=== PATIENT | female | born 1975 | race Caucasian/White ===

== ENCOUNTER 2016-06-23 22:59 | Emergency (ER) | payer OTHER ==
--- NOTE | ~2016-06-23 | CR72 ---
[facility] A Service of [facility] RADIOLOGY TEXT RESULTS PATIENT: SHANELL CHAMPION LOCATION: SED : [birth year] UNIT #: [id number] AGE: [address]: Dorian Acosta MD SEX: F ORDER DR: [id number] [place] [id number] E MR#: [id number] Acc #: [id number] NAME: SHANELL CHAMPION : 1975 SEX: F STUDY DATE/TIME: 06/24/2016 1:15 UNIT: SED ROOM: STUDY DESCRIPTION: CR Chest Single View Portable Attending Physician: Dorian Acosta M.D. Ordering Physician: Dorian Acosta M.D. Primary Care Physician: Laith Mojica M.D. MEDICAL IMAGING REPORT This report is preliminary unless electronic signature is present. EXAM AP portable chest. DATE 06/24/2016 at 0115 HISTORY Abdominal pain, chest pain, nausea, and vomiting for 2 days. COMPARISON PA and lateral chest radiograph, 07/02/2015. FINDINGS A single AP portable view of the chest shows both lungs to be clear. The heart is normal in size. The mediastinal contour is normal. No significant bone abnormalities are seen. IMPRESSION Normal portable chest. Dictated by... Celena Lechuga M.D. THIS IS AN ELECTRONICALLY VERIFIED REPORT Celena Lechuga M.D. at 06/28/2016 8:37 AM LL/yanique TD: 06/24/2016 10:05 JOB #: [id number] [facility] A Service of [facility] RADIOLOGY TEXT RESULTS PATIENT: SHANELL CHAMPION LOCATION: SED : [birth year] UNIT #: [id number] AGE: [address]: Dorian Acosta MD SEX: F ORDER DR: MEDICAL IMAGING REPORT Page 1 of 1
--- NOTE | ~2016-06-23 | CT2 ---
[facility] A Service of [facility] & [facility] RADIOLOGY TEXT RESULTS PATIENT: SHANELL CHAMPION LOCATION: SED : [birth year] UNIT #: [id number] AGE: [address]: Dorian Acosta MD SEX: F ORDER DR: [id number] [place] [id number] E MR#: [id number] Acc #: [id number] NAME: SHANELL CHAMPION : 1975 SEX: F STUDY DATE/TIME: 06/24/2016 1:09 UNIT: SED ROOM: STUDY DESCRIPTION: CT Abd and Pelv W Cont Attending Physician: Dorian Acosta M.D. Ordering Physician: Dorian Acosta M.D. Primary Care Physician: Laith Mojica M.D. MEDICAL IMAGING REPORT This report is preliminary unless electronic signature is present. EXAM CT abdomen and pelvis with contrast Date: 06/24/2016 at 01:09 HISTORY 41-year-old female with complaints of chest pain and abdominal pain with nausea and vomiting for 2 days. Diabetes. Previous myocardial infarction. Colostomy with reversal. Bilateral hernia repair. COMPARISON CT abdomen and pelvis with contrast 03/14/2016, CTA AIF 03/18/2016. TECHNIQUE 5 mm axial images from lung bases to lesser trochanters after intravenous and enteric contrast administration. Sagittal and coronal reformatted images were obtained. This CT exam was performed with one or more of the following radiation dose reduction techniques: Automatic exposure control, adjustment of mA and/or kV according to patient size, and iterative reconstruction. FINDINGS Abdomen findings: Liver is enlarged 20.1 cm craniocaudally and is markedly diffusely steatotic but unchanged from prior exam. There is a small supraumbilical hernia containing nonobstructed noninflamed transverse colon. There is a small fat containing hernia in the left mid abdomen likely related to previous colostomy reversal site. There is segmental small bowel thickening within the left mid abdomen predominantly involving jejunum, and may represent changes of infectious or inflammatory enteritis. No evidence of high-grade bowel obstruction. The appendix is not visualized. No pericecal inflammation is seen. [facility] A Service of [facility] & [facility] RADIOLOGY TEXT RESULTS PATIENT: SHANELL CHAMPION [place] [facility] [birth year] UNIT #: [id number] AGE: [address]: Droian Acosta MD SEX: F ORDER DR: Gallbladder, pancreas, adrenals are normal. Multifocal bilateral renal cortical scarring. 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 Pelvis findings: Surgical changes of the sigmoid colon. Uterus, urinary bladder and rectum normal. No pelvic adenopathy or free fluid. No acute osseous abnormalities are identified. IMPRESSION 1. Thickened small bowel loops within the left mid abdomen predominately involving proximal jejunum. Correlate for infectious or inflammatory enteritis type symptoms. 2. Ventral abdominal hernias, 1 containing sidewall of the transverse colon, another containing a segment of small bowel, and a third low in the left lateral abdomen containing only fat. No convincing evidence of high-grade bowel obstruction. 3. Surgical changes of the sigmoid colon. 4. Multifocal bilateral renal cortical scarring. 5. 1 cm noncalcified nodule in the lingular segment of left upper lobe is stable since 01/04/2014 in keeping with a benign finding, not included in the body of the report. 6. Stable hepatomegaly with marked diffuse hepatic steatosis. 7. Splenic capsular cyst. Dictated by... Celena Lechuga M.D. THIS IS AN ELECTRONICALLY VERIFIED REPORT Celena Lechuga M.D. at 06/28/2016 8:37 AM ADIEL/zeferino TD: 06/24/2016 10:05 JOB #: [id number] MEDICAL IMAGING REPORT Page 1 of 1
--- NOTE | ~2016-06-23 | EKG ---
PATIENT: SHANELL CHAMPION UNIT #: [id number] Ventricular Rate: 100 BPM Atrial Rate: 100 BPM P-R Interval: 124 ms QRS Duration: 70 ms Q-T Interval: 322 ms QTC Calculation(Bezet): 415 ms P [place]: 78 degrees Calculated R [place]: 15 degrees Calculated T [place]: 2 degrees Diagnosis Line: Normal sinus rhythm Diagnosis Line: Normal ECG Diagnosis Line: When compared with ECG of 23-OCT-2009 19:41, Diagnosis Line: Non-specific change in ST segment in Lateral leads Diagnosis Line: Nonspecific T wave abnormality, worse in Inferior Diagnosis Line: leads Diagnosis Line: Confirmed by KIM MURGUIA MD ([id number]) on Diagnosis Line: 07/28/2016 7:04:49 AM INTERPRETING AMENA VALDEZ
[~2016-06-23 22:59] MED LIST: ACETAMINOPHEN500 M3 PO; ALPRAZOLAM PO; AMBIEN10 MG PO; AMOXICILLIN500 M1 PO; CIPRO PO; CLEOCIN HCL300 M1 PO; CLEOCIN150 MG PO; COUMADIN PO; COUMADIN10 MG PO; DOCUSATE SODIU100 MG PO; EFFEXOR37.5 MG PO; FIRST AID ANTIB30 G1 TOP; HUMALOG100 U/M2 SUBQ; HUMALOG100 U/ML SUBQ; HYDROCODON-ACE1 EAC1 PO; HYDROCODON-ACE1 EAC5 PO; IRON PO; LANTUS100 U/ML SQ; LANTUS100 UNITS/ INJ; LANTUS100 UNITS/ SUBQ; LEVEMIR SUBQ; LEXAPRO PO; LOVENOX100 MG/ML SUBQ; LYRICA PO; LYRICA75 MG PO; MED FOR DEPRESSION; PHENERGAN25 MG PO; TRAMADOL HCL100 MG PO; TRAZODONE PO; TYLOX 5/500 CAP1 CAP PO; ULTRAM PO; VICODIN 5/1 TAB 5/50 PO; XANAX1 MG PO; ZESTRIL10 M2 PO; ZOFRAN ODT4 MG/UDTAB PO
[2016-06-23 23:11] LABS: URINE SOURCE CLEAN CATCH
[2016-06-23 23:11] LABS: BASOPHIL# 0.1 X10e3 (0-0.3); BASOPHIL% 0.6 % (0-2.5); EOSINOPHIL# 0.1 X10e3 (0-0.7); EOSINOPHIL% 0.8 % (0.0-7.0); HEMATOCRIT 41.6 % (35.0-45.0); HEMOGLOBIN 13.2 gm/dL (12.0-16.0); LYMPHOCYTE# 2.9 X10e3 (1.0-3.5); LYMPHOCYTE% 26.7 % (17.0-45.0); MEAN CELL VOLUME 81.9 FL (83-96); MEAN CORPUSCULAR HEMOGLOBIN 26.1 PG (28-34); MEAN CORPUSCULAR HGB CONC 31.8 g/dL (30-36); MEAN PLATELET VOLUME 8.3 FL (6.5-11.5); MONOCYTE# 0.9 X10e3 (0-1.0); MONOCYTE% 8.5 % (3.0-12.0); NEUTROPHIL# 6.9 X10e3 (1.5-7.1); NEUTROPHIL% 63.4 % (40-75); PLATELET COUNT 442 X10e3 (140-420); RED BLOOD COUNT 5.08 X10e (3.90-5.30); RED CELL DISTRIBUTION WIDTH 15.4 % (11.0-15.5); WHITE BLOOD COUNT 10.8 X10e3 (4.0-10.5)
[2016-06-23 23:13] LABS: URINE APPEARANCE CLEAR; URINE BILIRUBIN NEG (NEG); URINE BLOOD 3+ (NEG); URINE COLOR YELLOW; URINE GLUCOSE 300 MG/DL (NORM); URINE KETONE NEG (NEG); URINE LEUKOCYTE ESTERASE NEG (NEG); URINE NITRATE NEG (NEG); URINE PROTEIN 1+ (NEG); URINE SPECIFIC GRAVITY 1.015 (1.003-1.035); URINE UROBILINOGEN 0.2 MG/DL (NORM)
[2016-06-23 23:13] LABS: DIFF IND NO
[2016-06-23 23:14] LABS: INR 2.1; PROTHROMBIN TIME (PATIENT) 24.4 SECONDS (9.5-12.4)
[2016-06-23 23:16] LABS: MICRO INDICATED? YES
[2016-06-23 23:21] LABS: PARTIAL THROMBOPLASTIN TIME 33.1 SECONDS (25.6-38.1)
[2016-06-23 23:21] LABS: CULTURE INDICATED? NO; URINE BACTERIA NEG (NEG); URINE SQUAMOUS EPITHELIAL CELL OCCAS /[HPF]
[2016-06-23 23:22] LABS: URINE YEAST PRESENT
[2016-06-23 23:24] LABS: ALBUMIN SERUM 3.4 g/dL (3.5-5.0); ALKALINE PHOSPHATASE 106 U/L (32-92); ALT (SGPT) 39 U/L (10-40); AST (SGOT) 33 U/L (10-42); BILIRUBIN,TOTAL 0.2 mg/dL (0.2-2.0); BLOOD UREA NITROGEN 5 mg/dL (9-23); CALCIUM SERUM 8.9 mg/dL (8.4-10.2); CARBON DIOXIDE 21 mmol/L (22-31); CHLORIDE 101 mmol/L (100-111); CREATININE SERUM 0.5 mg/dL (0.6-1.4); GLOM FILT RATE Estimated ABOVE60 mL/min (>60); GLUCOSE FASTING 182 mg/dL (70-110); LIPASE 42 U/L (22-51); POTASSIUM 3.5 mmol/L (3.5-5.1); PROTEIN TOTAL SERUM 7.3 g/dL (6.0-8.3); SODIUM 131 mmol/L (135-145)
[2016-06-23 23:28] LABS: BILIRUBIN, DIRECT <0.1 mg/dL (0.0-0.2); BILIRUBIN,INDIRECT 0.1 mg/dL (0.0-0.9)
[2016-06-23 23:48] LABS: POC - CKMB <1.0 ng/mL (0.0-7.9)
[2016-06-23 23:49] LABS: POC - TROPONIN <0.05 ng/mL (<=0.05)
[2016-08-03] MEDS ORDERED: LEXAPRO PO (06:54)
== END 2016-06-24 03:11 | disposition home or self-care (01) ==
LOC: SED 22:59
PROVIDERS: Emergency Medicine
DX: R10.9 Unspecified abdominal pain (principal); R11.2 Nausea with vomiting, unspecified; R19.7 Diarrhea, unspecified; K21.9 Gastro-esophageal reflux disease without esophagitis; F31.9 Bipolar disorder, unspecified; F17.210 Nicotine dependence, cigarettes, uncomplicated; Z88.8 Allergy status to other drugs, medicaments and biological substances; Z79.4 Long term (current) use of insulin; Z79.899 Other long term (current) drug therapy
CPT/HCPCS: 36415; 71010; 74177; 80048; 80076; 81003; 82553; 82947; 83690; 83874; 84484; 84703; 85025; 85610; 85730; 93005; 96361; 96374; 96375; 96376; 99284; J2270; J2405; Q9967

== ENCOUNTER 2016-07-17 20:35 | Emergency (ER) | payer OTHER ==
--- NOTE | ~2016-07-17 | CR173 ---
[facility] A Service of [facility] & [facility] RADIOLOGY TEXT RESULTS PATIENT: SHANELL CHAMPION LOCATION: SED : [birth year] UNIT #: [id number] AGE: [address]: Dorian Acosta MD SEX: F ORDER DR: [id number] [place] [id number] E MR#: [id number] Acc #: [id number] NAME: SHANELL CHAMPION : 1975 SEX: F STUDY DATE/TIME: 07/17/2016 21:11 UNIT: SED ROOM: STUDY DESCRIPTION: CR Knee 3 Views Rt Attending Physician: Dorian Acosta M.D. Ordering Physician: Dorian Acosta M.D. Primary Care Physician: Laith Mojica M.D. MEDICAL IMAGING REPORT This report is preliminary unless electronic signature is present. EXAM Right knee 3 views, 07/17/2016 HISTORY Right knee pain for 3 days with no known injury. FINDINGS 3 views of the right knee demonstrate prior yxtma-vkz-xust amputation. The bones are osteopenic. No fracture is seen. Question is raised of ill-defined nodular density in the posterior aspect of the right knee measuring 4.4 cm in diameter. It may represent a Underwood's cyst. IMPRESSION 1. Prior dwlyk-hxs-qivl amputation. Severe osteopenia. 2. A 4.4 cm soft tissue density in the region of the right popliteal fossa on the lateral view only. It may represent a Underwood's cyst. Dictated by... Isidoro Melendez M.D. THIS IS AN ELECTRONICALLY VERIFIED REPORT Isidoro Melendez M.D. at 07/18/2016 10:28 AM NANI/marnie TD: 07/18/2016 03:28 JOB #: [id number] MEDICAL IMAGING REPORT Page 1 of 1
[2016-07-17 20:18] LABS: URINE SOURCE CLEAN CATCH
[2016-07-17 20:21] LABS: URINE APPEARANCE CLEAR; URINE BILIRUBIN NEG (NEG); URINE BLOOD 2+ (NEG); URINE COLOR YELLOW; URINE GLUCOSE 300 MG/DL (NORM); URINE KETONE NEG (NEG); URINE LEUKOCYTE ESTERASE NEG (NEG); URINE NITRATE NEG (NEG); URINE PROTEIN TRACE (NEG); URINE SPECIFIC GRAVITY <=1.005 (1.003-1.035); URINE UROBILINOGEN 0.2 MG/DL (NORM)
[2016-07-17 20:22] LABS: MICRO INDICATED? YES
[2016-07-17 20:23] LABS: CULTURE INDICATED? NO; URINE BACTERIA NEG (NEG); URINE MUCUS PRESENT; URINE SQUAMOUS EPITHELIAL CELL OCCAS /[HPF]; URINE WBC NEG /[HPF] (0-5)
[2016-07-17 21:49] LABS: BASOPHIL# 0.1 X10e3 (0-0.3); BASOPHIL% 1.1 % (0-2.5); EOSINOPHIL# 0.1 X10e3 (0-0.7); EOSINOPHIL% 1.1 % (0.0-7.0); HEMATOCRIT 40.7 % (35.0-45.0); HEMOGLOBIN 13.1 gm/dL (12.0-16.0); LYMPHOCYTE# 2.4 X10e3 (1.0-3.5); LYMPHOCYTE% 26.5 % (17.0-45.0); MEAN CELL VOLUME 80.7 FL (83-96); MEAN CORPUSCULAR HGB CONC 32.2 g/dL (30-36); MEAN PLATELET VOLUME 8.3 FL (6.5-11.5); MONOCYTE# 0.9 X10e3 (0-1.0); MONOCYTE% 9.5 % (3.0-12.0); NEUTROPHIL# 5.6 X10e3 (1.5-7.1); NEUTROPHIL% 61.8 % (40-75); PLATELET COUNT 392 X10e3 (140-420); RED BLOOD COUNT 5.05 X10e (3.90-5.30); RED CELL DISTRIBUTION WIDTH 15.3 % (11.0-15.5); WHITE BLOOD COUNT 9.1 X10e3 (4.0-10.5)
[2016-07-17 21:53] LABS: DIFF IND NO
[2016-07-17 22:04] LABS: ALBUMIN SERUM 3.6 g/dL (3.5-5.0); ALKALINE PHOSPHATASE 106 U/L (32-92); ALT (SGPT) 34 U/L (10-40); AST (SGOT) 28 U/L (10-42); BILIRUBIN,TOTAL 0.2 mg/dL (0.2-2.0); CALCIUM SERUM 8.9 mg/dL (8.4-10.2); CARBON DIOXIDE 22 mmol/L (22-31); CHLORIDE 96 mmol/L (100-111); CREATININE SERUM 0.6 mg/dL (0.6-1.4); GLUCOSE FASTING 494 mg/dL (70-110); POTASSIUM 3.9 mmol/L (3.5-5.1); PROTEIN TOTAL SERUM 7.5 g/dL (6.0-8.3); SODIUM 129 mmol/L (135-145)
[2016-07-17 22:09] LABS: BLOOD UREA NITROGEN <5 mg/dL (9-23); BUN/CREATININE RATIO 8.33
[2016-07-17 22:28] LABS: INR 1.8; PROTHROMBIN TIME (PATIENT) 20.9 SECONDS (9.5-12.4)
[2016-08-03] MEDS ORDERED: LEXAPRO PO (06:54)
== END 2016-07-18 00:41 | disposition home or self-care (01) ==
LOC: SED 20:35
PROVIDERS: Emergency Medicine
DX: E11.65 Type 2 diabetes mellitus with hyperglycemia (principal); R11.2 Nausea with vomiting, unspecified; Z79.4 Long term (current) use of insulin; F17.200 Nicotine dependence, unspecified, uncomplicated; Z79.899 Other long term (current) drug therapy; Z88.8 Allergy status to other drugs, medicaments and biological substances
CPT/HCPCS: 36415; 73562; 80053; 81003; 82947; 84703; 85025; 85610; 96361; 96374; 96375; 99284; J2270; J2405

== ENCOUNTER 2016-08-03 07:10 | Emergency (ER) | payer OTHER ==
--- NOTE | ~2016-08-03 | US85 ---
[facility] A Service of [facility] & [facility] RADIOLOGY TEXT RESULTS PATIENT: SHANELL CHAMPION LOCATION: SED : [birth year] UNIT #: [id number] AGE: [address]: Yuki Johns MD SEX: F ORDER DR: [id number] [address] [address] [id number] E MR#: [id number] Acc #: [id number] NAME: SHANELL CHAMPION : 1975 SEX: F STUDY DATE/TIME: 08/03/2016 9:22 UNIT: SED ROOM: STUDY DESCRIPTION: [facility] [place] or [facility] Attending Physician: Yuki Johns M.D. Ordering Physician: Yuki Johns M.D. Primary Care Physician: Laith Mojica M.D. MEDICAL IMAGING REPORT This report is preliminary unless electronic signature is present. EXAM Left lower extremity venous duplex 08/03/2016 HISTORY Left lower extremity pain for 2 days with previous history of left lower extremity deep vein thrombosis. TECHNIQUE Venous ultrasound examination of the left lower extremity was performed using grayscale, spectral Doppler and color flow Doppler imaging. FINDINGS The examination is negative. There is no evidence of left lower extremity deep venous thrombus from the groin to the lower calf. Visualized greater saphenous vein is also patent. IMPRESSION Negative examination. No evidence of left lower extremity deep venous thrombosis. Dictated by... Isidoro Melendez M.D. THIS IS AN ELECTRONICALLY VERIFIED REPORT Isidoro Melendez M.D. at 08/04/2016 8:29 AM Elva TD: 08/03/2016 10:37 JOB #: [id number] MEDICAL IMAGING REPORT Page 1 of 1
--- NOTE | ~2016-08-03 | CR72 ---
[facility]. [facility] A Service of [facility] & [facility] RADIOLOGY TEXT RESULTS PATIENT: SHANELL CHAMPION LOCATION: SED : [birth year] UNIT #: [id number] AGE: [address]: Yuki Johns MD SEX: F ORDER DR: [id number] [place] [id number] E MR#: [id number] Acc #: [id number] NAME: SHANELL CHAMPION : 1975 SEX: F STUDY DATE/TIME: 08/03/2016 7:40 UNIT: SED ROOM: STUDY DESCRIPTION: CR Chest Single View Portable Attending Physician: Yuki Johns M.D. Ordering Physician: Yuki Johns M.D. Primary Care Physician: Laith Mojica M.D. MEDICAL IMAGING REPORT This report is preliminary unless electronic signature is present. EXAM Portable chest one-view 08/03/2016 COMPARISON 06/24/2016. CLINICAL HISTORY Left side neck, chest and arm pain since last night. FINDINGS Submaximal inspiration, otherwise negative. No consolidation, effusion or pneumothorax. Heart size may be upper limits normal though again submaximal inspiration may exaggerate that appearance. Dictated by... Al Boyd M.D. THIS IS AN ELECTRONICALLY VERIFIED REPORT Al Boyd M.D. at 08/03/2016 9:38 AM JEANNETTE/myah TD: 08/03/2016 09:15 JOB #: [id number] MEDICAL IMAGING REPORT Page 1 of 1
--- NOTE | ~2016-08-03 | EKG ---
PATIENT: SHANELL CHAMPION UNIT #: [id number] Ventricular Rate: 98 BPM Atrial Rate: 98 BPM P-R Interval: 132 ms QRS Duration: 82 ms Q-T Interval: 354 ms QTC Calculation(Bezet): 451 ms P [place]: 49 degrees Calculated R [place]: 21 degrees Calculated T [place]: 23 degrees Diagnosis Line: Normal sinus rhythm Diagnosis Line: Poor R wave progression questionable lead position Diagnosis Line: or body habitus Baseline wander Otherwise normal Diagnosis Line: ECG Diagnosis Line: When compared with ECG of 23-JUN-2016 23:17, Diagnosis Line: Nonspecific T wave abnormality, improved in Diagnosis Line: Inferior leads Diagnosis Line: Confirmed by RILEY VILLANUEVA MD ([id number]) on 08/04/2016 Diagnosis Line: 12:03:54 PM INTERPRETING MD: KAY MIRANDA
--- NOTE | ~2016-08-03 | CT16 ---
[facility] A Service of [facility] & [facility] RADIOLOGY TEXT RESULTS PATIENT: SHANELL CHAMPION LOCATION: SED : [birth year] UNIT #: [id number] AGE: [address]: Yuki Johns MD SEX: F ORDER DR: [id number] [address] [address] [id number] E MR#: [id number] Acc #: [id number] NAME: SHANELL CHAMPION : 1975 SEX: F STUDY DATE/TIME: 08/03/2016 8:04 UNIT: SED ROOM: STUDY DESCRIPTION: CT Angio Chest for PE Attending Physician: Yuki Johns M.D. Ordering Physician: Yuki Johns M.D. Primary Care Physician: Laith Mojica M.D. MEDICAL IMAGING REPORT This report is preliminary unless electronic signature is present. EXAM CT chest with contrast with CT angiography HISTORY Left-sided chest pain radiating to the neck and arm beginning last evening. TECHNIQUE Axial imaging was obtained through the chest with contrast. 80 mL of Isovue was used. CT angiography was performed with thick sliding MIPs in the sagittal and coronal projections. This CT exam was performed with one or more of the following radiation dose reduction techniques: automatic exposure control, adjustment of mA and/or kV according to patient size, and iterative reconstruction. FINDINGS There is greater contrast opacification on the aortic side than the pulmonary side because of contrast bolus missed timing. The study is not adequate to exclude peripheral emboli. No large central emboli are seen. No secondary signs of pulmonary embolism are noted. The right ventricle is not enlarged. There is no evidence of pleural or pericardial fluid. There is no evidence of mediastinal or hilar adenopathy. There is a well-circumscribed low-density lesion in the spleen that is subcapsular and measures 3.9 x 5.9 cm. It is compatible with a cyst and unchanged from the recent abdominal CT from 06/24/2016. Hepatic steatosis is again noted and unchanged. Lung window imaging demonstrates a noncalcified nodule in the lingula. It is unchanged dating back to 2009 and no further followup is warranted. The lungs are otherwise clear. IMPRESSION 1. Suboptimal contrast bolus timing. The study is adequate to exclude STS. [facility] A Service of [facility] & [facility] RADIOLOGY TEXT RESULTS PATIENT: SHANELL CHAMPION LOCATION: [place] : [birth year] UNIT #: [id number] AGE: [address]: Yuki Johns MD SEX: F ORDER DR: large central emboli but small peripheral emboli could be overlooked. 2. No active disease in the chest. There is a noncalcified lingular nodule but it is stable dating back to 2009 and therefore no further followup is needed. 3. Hepatic steatosis. 4. Splenic cyst unchanged from a recent abdominal CT. Dictated by... Jeremiah Spann M.D. THIS IS AN ELECTRONICALLY VERIFIED REPORT Jeremiah Spann M.D. at 08/03/2016 4:44 PM Fred TD: 08/03/2016 09:27 JOB #: [id number] MEDICAL IMAGING REPORT Page 1 of 1
[2016-08-03 07:19] LABS: POC - CKMB 1.3 ng/mL (0.0-7.9); POC - TROPONIN <0.05 ng/mL (<=0.05)
[2016-08-03 07:20] LABS: INR 1.4; PROTHROMBIN TIME (PATIENT) 15.7 SECONDS (9.5-12.4)
[2016-08-03 07:22] LABS: URINE SOURCE CLEAN CATCH
[2016-08-03 07:25] LABS: URINE APPEARANCE CLEAR; URINE BILIRUBIN NEG (NEG); URINE BLOOD TRACE-LYSED (NEG); URINE COLOR YELLOW; URINE GLUCOSE NEG (NORM); URINE KETONE NEG (NEG); URINE LEUKOCYTE ESTERASE NEG (NEG); URINE NITRATE NEG (NEG); URINE PH 5.5 (5-8); URINE PROTEIN NEG (NEG); URINE SPECIFIC GRAVITY <=1.005 (1.003-1.035); URINE UROBILINOGEN 0.2 MG/DL (NORM)
[2016-08-03 07:27] LABS: PARTIAL THROMBOPLASTIN TIME 30.3 SECONDS (25.6-38.1)
[2016-08-03 07:29] LABS: ALBUMIN SERUM 3.5 g/dL (3.5-5.0); ALKALINE PHOSPHATASE 110 U/L (32-92); ALT (SGPT) 34 U/L (10-40); AST (SGOT) 24 U/L (10-42); BILIRUBIN,TOTAL 0.2 mg/dL (0.2-2.0); BLOOD UREA NITROGEN 8 mg/dL (9-23); CARBON DIOXIDE 27 mmol/L (22-31); CHLORIDE 103 mmol/L (100-111); CREATININE SERUM 0.4 mg/dL (0.6-1.4); GLOM FILT RATE Estimated 130.3 mL/min (>60); GLUCOSE FASTING 78 mg/dL (70-110); POTASSIUM 3.5 mmol/L (3.5-5.1); PROTEIN TOTAL SERUM 7.7 g/dL (6.0-8.3); SODIUM 135 mmol/L (135-145)
[2016-08-03 07:30] LABS: BASOPHIL# 0.1 X10e3 (0-0.3); BASOPHIL% 0.7 % (0-2.5); EOSINOPHIL# 0.1 X10e3 (0-0.7); EOSINOPHIL% 1.2 % (0.0-7.0); HEMATOCRIT 38.4 % (35.0-45.0); HEMOGLOBIN 12.2 gm/dL (12.0-16.0); LYMPHOCYTE% 35.9 % (17.0-45.0); MEAN CELL VOLUME 80.9 FL (83-96); MEAN CORPUSCULAR HEMOGLOBIN 25.6 PG (28-34); MEAN CORPUSCULAR HGB CONC 31.6 g/dL (30-36); MEAN PLATELET VOLUME 8.1 FL (6.5-11.5); MONOCYTE# 1.1 X10e3 (0-1.0); NEUTROPHIL# 5.8 X10e3 (1.5-7.1); NEUTROPHIL% 52.2 % (40-75); PLATELET COUNT 384 X10e3 (140-420); RED BLOOD COUNT 4.75 X10e (3.90-5.30); WHITE BLOOD COUNT 11.1 X10e3 (4.0-10.5)
[2016-08-03 07:32] LABS: MICRO INDICATED? YES
[2016-08-03 07:34] LABS: BILIRUBIN, DIRECT <0.1 mg/dL (0.0-0.2); BILIRUBIN,INDIRECT 0.1 mg/dL (0.0-0.9); DIFF IND NO
[2016-08-03 07:37] LABS: AMPHETAMINE NEG (NEG); BARBITURATES NEG (NEG); BENZODIAZEPINES NEG (NEG); COCAINE NEG (NEG); MARIJUANA POS (NEG); OPIATES NEG (NEG); TRICYCLIC ANTIDEPRESSANTS NEG (NEG); U METHADONE NEG (NEG)
[2016-08-03 07:47] LABS: CULTURE INDICATED? NO; URINE BACTERIA NEG (NEG); URINE RBC 0-2 /[HPF] (0-2); URINE WBC 0-2 /[HPF] (0-5)
[2016-08-03 09:34] LABS: POC - CKMB <1.0 ng/mL (0.0-7.9); POC - TROPONIN <0.05 ng/mL (<=0.05)
== END 2016-08-03 10:46 | disposition home or self-care (01) ==
LOC: SED 07:10
PROVIDERS: Student in an Organized Health Care Education/Training Program
DX: R07.89 Other chest pain (principal); M79.652 Pain in left thigh; M79.622 Pain in left upper arm; M54.2 Cervicalgia; G89.29 Other chronic pain; F12.10 Cannabis abuse, uncomplicated; Z88.6 Allergy status to analgesic agent; Z79.01 Long term (current) use of anticoagulants; Z79.4 Long term (current) use of insulin; Z79.899 Other long term (current) drug therapy
CPT/HCPCS: 71010; 71275; 80048; 80076; 80307; 81003; 82553; 83880; 84484; 84703; 85025; 85610; 85730; 93005; 93971; 99284; Q9967